=== PATIENT | female | born 1980 | race Caucasian/White ===

== ENCOUNTER → 2020-12-19 11:34 | Outpatient (CLI) | payer MEDICAID, SELFPAY ==
[2020-12-19 11:51] LABS: Basophils # 0.1 K/mm3 (0-0.2); Basophils % 0.7 % (0.1-2.0); Eosinophils # 0.3 K/mm3 (0.0-0.4); Hematocrit 38.4 % (37.0-47.0); Hemoglobin 12.4 g/dL (12.2-16.2); Lymphocytes # 3.3 K/mm3 (0.7-4.5); Lymphocytes % 25.9 % (10-50); Mean Corpuscular HGB Conc 32.3 g/dL (31.8-35.4); Mean Corpuscular Hemoglobin 26.2 pg (27.0-31.2); Mean Platelet Volume 8.2 fl (7.4-10.4); Monocytes # 0.5 K/mm3 (0.1-1.0); Monocytes % 3.7 % (1.7-9.3); Neutrophils # 8.7 K/mm3 (1.8-7.8); Neutrophils % 67.6 % (37.0-80.0); Platelet Count 255 K/mm3 (142-424); Red Blood Count 4.74 M/mm3 (4.20-5.40); Red Cell Distribution Width 15.3 % (11.5-17.5); White Blood Count 12.9 K/mm3 (4.8-10.8)
[2020-12-19 12:51] LABS: Erythrocyte Sedimentation Rate 103 mm/hr (0-20)
[2020-12-19 12:57] LABS: Chloride 105 mmol/L (98-107)
[2020-12-19 12:58] LABS: Potassium 4.5 mmoL/L (3.5-5.1); Sodium 141 mmol/L (136-145)
[2020-12-19 13:00] LABS: Blood Urea Nitrogen 5 mg/dl (7-17); Estimated Glomerular Filt Rate 110 ml/min (>60); GFR (African American) 133 ML/MIN (>60)
[2020-12-19 13:01] LABS: Alanine Aminotransferase 17 U/L (12-78); Albumin/Globulin Ratio 1.4 (1.1-1.8); Alkaline Phosphatase 75 U/L (38-126); Anion Gap 14.5 mEq/L (5-15); Aspartate Amino Transferase 28 U/L (14-36); Bilirubin,Total 0.2 mg/dl (0.2-1.3); Calcium 9.2 mg/dl (8.4-10.2); Carbon Dioxide 26 mmol/L (22.0-30.0); Cholesterol 148 mg/dl (140-200); Globulin 2.9 g/dL (1.3-3.2); Glucose 84 mg/dl (74-100); Total Protein,Serum 6.9 g/dl (6.3-8.2); Triglycerides 182 mg/dl (30-150); VLDL Cholesterol 36 mg/dL (0-40)
[2020-12-19 13:02] LABS: HDL Cholesterol 63 mg/dl (40-60)
[2020-12-19 13:21] LABS: Chol/HDL Ratio 2.3 (1-3.5); T4 (Thyroxine) 11.8 ug/dl (5.53-11.0)
[2020-12-19 13:32] LABS: Thyroid Stimulating Hormone 2.02 uIU/mL (0.465-4.68)
[2020-12-21 11:37] LABS: Peripheral Smear Review Scanned Result
[2020-12-23 21:13] LABS: 1,25 Dihydroxy Vitamin D 52 pg/mL (.); 1,25-Dihydroxy, Vitamin D-2 33 pg/mL (.); 1,25-Dihydroxy, Vitamin D-3 19 pg/mL (.)
== END ==
PROVIDERS: Visit Provider Nurse Practitioner Family
DX: F41.9 Anxiety disorder, unspecified (principal); D72.829 Elevated white blood cell count, unspecified; F32.9 Major depressive disorder, single episode, unspecified; M43.06 Spondylolysis, lumbar region; M46.96 Unspecified inflammatory spondylopathy, lumbar region; E66.9 Obesity, unspecified; Z68.42 Body mass index [BMI] 45.0-49.9, adult
CPT/HCPCS: 36415; 80053; 80061; 82652; 84436; 84443; 85025; 85651

== ENCOUNTER → 2021-01-02 11:17 | Outpatient (CLI) | payer MEDICAID, SELFPAY ==
--- NOTE | 2021-01-02 11:23 | XR_ITS ---
PROCEDURE INFORMATION: Exam: XR Left Hip Exam date and time: 01/02/2021 11:23 AM Age: 40 years old Clinical indication: Left hip; Patient HX: Bilateral hip pain with no trauma TECHNIQUE: Imaging protocol: XR Left hip. Views: 2 or 3 views hip with pelvis when performed. COMPARISON: No relevant prior studies available. FINDINGS: Bones/joints: There is no evidence of acute fracture. There is no evidence of joint malalignment or dislocation. Soft tissues: There are no soft tissue masses or fluid collections. IMPRESSION: 1. No evidence of acute fracture. 2. No evidence of acute dislocation.
--- NOTE | 2021-01-02 11:23 | XR_ITS ---
PROCEDURE INFORMATION: Exam: XR Lumbosacral Spine Exam date and time: 01/02/2021 11:23 AM Age: 40 years old Clinical indication: Low back pain TECHNIQUE: Imaging protocol: XR of the lumbosacral spine. Views: 4 or 5 views. COMPARISON: No relevant prior studies available. FINDINGS: Bones/joints: The lumbar spine demonstrates mild degenerative changes at multiple levels. The facet joints demonstrate mild degenerative hypertrophy and sclerosis. There is no evidence of acute fracture. Soft tissues: Unremarkable. IMPRESSION: 1. The lumbar spine demonstrates mild degenerative changes at multiple levels. 2. No evidence of acute fracture.
--- NOTE | 2021-01-02 11:23 | XR_ITS ---
PROCEDURE: XR CHEST 2V CLINICAL HISTORY: leukocytosis COMPARISON: No exams were available for comparison FINDINGS: The cardiomediastinal silhouette and pulmonary vascularity are within normal limits. The lungs are clear without infiltrates, suspicious nodules, or pleural effusions. No acute bony abnormalities. IMPRESSION: No acute findings. Dictated by: Maame Krishna 01/03/2021 14:48 Maame Krishna in [facility] 01/03/2021 14:48
--- NOTE | 2021-01-02 11:25 | XR_ITS ---
PROCEDURE INFORMATION: Exam: XR Right Hip Exam date and time: 01/02/2021 11:25 AM Age: 40 years old Clinical indication: Patient HX: Bilateral hip pain with no trauma TECHNIQUE: Imaging protocol: XR Right hip. Views: 2 or 3 views hip with pelvis when performed. COMPARISON: No relevant prior studies available. FINDINGS: Bones/joints: There is no evidence of acute fracture. There is no evidence of joint malalignment or dislocation. There are mild degenerative changes in the right hip joint. Soft tissues: There are no soft tissue masses or fluid collections. IMPRESSION: 1. No evidence of acute fracture. 2. No evidence of acute dislocation. 3. There are mild degenerative changes in the right hip joint.
== END ==
PROVIDERS: PCP Emergency Medicine; Visit Provider Nurse Practitioner Family
DX: M54.5 Low back pain (principal); G89.29 Other chronic pain; M54.9 Dorsalgia, unspecified; D72.829 Elevated white blood cell count, unspecified
CPT/HCPCS: 71046; 72110; 73502

== ENCOUNTER → 2021-01-23 16:05 | Outpatient (CLI) | payer MEDICAID, SELFPAY ==
[2021-01-23 16:58] LABS: Phencyclidine Screen,Urine Negative ng/ml (<25)
[2021-01-23 17:07] LABS: Amphetamine/Metha Screen,Urine Negative ng/ml (<1000)
[2021-01-23 17:08] LABS: Barbiturates Screen,Urine Negative ng/ml (<200)
[2021-01-23 17:09] LABS: Benzodiazepines Screen,Urine Negative ng/ml (<200); Cannabinoid Screen,Urine Negative ng/ml (<50)
[2021-01-23 17:11] LABS: Cocaine Screen,Urine Negative ng/ml (<300)
[2021-01-23 17:12] LABS: Methadone Screen,Urine Negative ng/ml (<300); Opiate Screen,Urine Negative ng/ml (<300)
== END ==
PROVIDERS: Visit Provider Emergency Medicine
DX: Z79.899 Other long term (current) drug therapy (principal)
CPT/HCPCS: 80305

== ENCOUNTER → 2021-02-07 13:29 | Outpatient (CLI) | payer MEDICAID, SELFPAY ==
[2021-02-07 14:24] LABS: Basophils # 0.1 K/mm3 (0-0.2); Basophils % 0.7 % (0.1-2.0); Eosinophils # 0.2 K/mm3 (0.0-0.4); Eosinophils % 1.6 % (0.1-12.0); Hematocrit 40.3 % (37.0-47.0); Hemoglobin 12.5 g/dL (12.2-16.2); Lymphocytes # 3.7 K/mm3 (0.7-4.5); Lymphocytes % 27.9 % (10-50); Mean Corpuscular HGB Conc 30.9 g/dL (31.8-35.4); Mean Corpuscular Volume 87.2 fl (81-99); Mean Platelet Volume 9.6 fl (7.4-10.4); Monocytes # 0.6 K/mm3 (0.1-1.0); Monocytes % 4.2 % (1.7-9.3); Neutrophils # 8.6 K/mm3 (1.8-7.8); Neutrophils % 65.6 % (37.0-80.0); Platelet Count 321 K/mm3 (142-424); Red Blood Count 4.62 M/mm3 (4.20-5.40); Red Cell Distribution Width 15.4 % (11.5-17.5); White Blood Count 13.1 K/mm3 (4.8-10.8)
== END ==
PROVIDERS: Visit Provider Internal Medicine Medical Oncology
DX: D64.9 Anemia, unspecified (principal)
CPT/HCPCS: 36415; 85025

== ENCOUNTER → 2021-04-17 16:27 | Outpatient (CLI) | payer MEDICAID, SELFPAY ==
--- NOTE | 2021-04-17 16:27 | MR_ITS ---
PROCEDURE: MR LUMBAR SPINE WO CON CLINICAL INDICATION: back pain Low back pain with bilateral leg pain COMPARISON: CR XR LUMBAR SPINE MIN 4V from 01/02/2021 TECHNIQUE: Standard multiplanar multiecho sequences are performed without contrast. 3-D MIP and myelographic images are also rendered and reviewed FINDINGS: Normal alignment. The spinal cord ends at the L1 level. T11-T12: Mild degenerative disc disease with minimal bulging disc. T12-L1: Unremarkable. L1-L2: Mild facet hypertrophic change. L2-L3: Degenerative disc disease with mild bulging of the disc slightly eccentric toward the left along with facet and ligamentum hypertrophic change with mild left lateral recess narrowing and mild bilateral foraminal narrowing. Small transverse area of decreased T2 signal is present along the posterior aspect of the L3 vertebral body superiorly adjacent to the disc and may represent a small osteophyte versus partial volume averaging artifact. L3-L4: Mild concentric bulging disc with small broad-based central disc protrusion along facet and ligamentum hypertrophic change with resultant bilateral lateral recess narrowing. L4-5: Concentric bulging disc with small broad-based central disc protrusion along with facet and ligamentum hypertrophic change with mild bilateral lateral recess and mild right and moderate left foraminal narrowing. There is borderline canal stenosis at this level. L5-S1: Facet hypertrophy causing bilateral lateral recess narrowing which is slightly greater on the left. No extruded herniated disc. No fracture or dislocation. No bony destructive process. IMPRESSION: Multilevel lumbar spondylosis with bulging discs and small broad-based disc protrusions along with facet and ligamentum hypertrophic change resulting in lateral recess and foraminal narrowing. Please see above for detailed description at each level. No extruded herniated disc. Dictated by: Say Weinstein MD 04/18/2021 07:21 Say Weinstein MD in [facility] 04/18/2021 07:21
== END ==
PROVIDERS: PCP Emergency Medicine; Visit Provider Emergency Medicine
DX: M43.06 Spondylolysis, lumbar region (principal)
CPT/HCPCS: 72148; 76376

== ENCOUNTER → 2021-05-27 11:14 | Outpatient (POV) | payer MEDICAID, SELFPAY ==
[2021-05-27 11:37] VITALS: BP 116/71; PULSE 97; RESP 18; O2SAT 96; BMI 43.7
--- NOTE | 2021-05-27 11:55 | [facility].PMCON ---
Assessment and Plan (1) Facet arthropathy Status: Acute Category: Medical Code(s): M47.819 - Spondylosis without myelopathy or radiculopathy, site unspecified (2) Bulging disc Status: Acute Category: Medical (3) Chronic back pain Status: Chronic Qualifiers: Back pain location: low back pain Back pain laterality: midline Sciatica presence: without sciatica Category: Medical Code(s): M54.9 - Dorsalgia, unspecified; G89.29 - Other chronic pain (4) Lumbar spondylitis Status: Chronic Category: Medical Code(s): M46.96 - Unspecified inflammatory spondylopathy, lumbar region - Assessment and plan all Dx Assessment and Plan for all problems:: Ordering Physician: Edson Sim MD Date of Service: 04/17/21 Procedure(s): MR lumbar spine wo con Accession Number(s): [id number] cc: Say Weinstein MD; Edson Sim MD~ PROCEDURE: MR LUMBAR SPINE WO CON CLINICAL INDICATION: back pain Low back pain with bilateral leg pain COMPARISON: CR XR LUMBAR SPINE MIN 4V from 01/02/2021 TECHNIQUE: Standard multiplanar multiecho sequences are performed without contrast. 3-D MIP and myelographic images are also rendered and reviewed FINDINGS: Normal alignment. The spinal cord ends at the L1 level. T11-T12: Mild degenerative disc disease with minimal bulging disc. T12-L1: Unremarkable. L1-L2: Mild facet hypertrophic change. L2-L3: Degenerative disc disease with mild bulging of the disc slightly eccentric toward the left along with facet and ligamentum hypertrophic change with mild left lateral recess narrowing and mild bilateral foraminal narrowing. Small transverse area of decreased T2 signal is present along the posterior aspect of the L3 vertebral body superiorly adjacent to the disc and may represent a small osteophyte versus partial volume averaging artifact. L3-L4: Mild concentric bulging disc with small broad-based central disc protrusion along facet and ligamentum hypertrophic change with resultant bilateral lateral recess narrowing. L4-5: Concentric bulging disc with small broad-based central disc protrusion along with facet and ligamentum hypertrophic change with mild bilateral lateral recess and mild right and moderate left foraminal narrowing. There is borderline canal stenosis at this level. L5-S1: Facet hypertrophy causing bilateral lateral recess narrowing which is slightly greater on the left. No extruded herniated disc. No fracture or dislocation. No bony destructive process. IMPRESSION: Multilevel lumbar spondylosis with bulging discs and small broad-based disc protrusions along with facet and ligamentum hypertrophic change resulting in lateral recess and foraminal narrowing. Please see above for detailed description at each level. No extruded herniated disc. Dictated by: Say Weinstein MD 04/18/2021 07:21 Say Weinstein MD in [facility] 04/18/2021 07:21 Patient has tried and failed conservative therapies such as oral medication, physical therapy, home exercise program 6 weeks. Patient has positive Hendricks's test. Neurosurgery and Microstrategy Developer say that she is not a surgical candidate. Patient says that a veterans services specialist told her that epidural injections would make her back worse so she is not interested in getting injections today. I have discussed with the patient that she is a good candidate for a spinal cord stimulator. We send the patient for a psychiatric evaluation then we will follow up with this patient after the eval. Patient says that she will have to think about going with a spinal cord stimulator since she is not fond of surgeries. I have provided the patient with information regarding the spinal cord stimulator. Risks and benefits of the procedure have been explained to the patient. We will not refill the patient's oral pain medications at this clinic. Patient has been instructed to contact the clinic with any concerns before the next appointment.
== END ==
PROVIDERS: Visit Provider Clinical Nurse Specialist Family Health
DX: M47.819 Spondylosis without myelopathy or radiculopathy, site unspecified (principal); G89.29 Other chronic pain; M46.96 Unspecified inflammatory spondylopathy, lumbar region
CPT/HCPCS: 99202; G0463

== ENCOUNTER → 2021-05-27 17:51 | Outpatient (CLI) | payer MEDICAID, SELFPAY ==
[2021-05-27 20:54] LABS: Amphetamine/Metha Screen,Urine Negative ng/ml (<1000)
[2021-05-27 20:55] LABS: Barbiturates Screen,Urine Negative ng/ml (<200); Benzodiazepines Screen,Urine Negative ng/ml (<200)
[2021-05-27 20:56] LABS: Cannabinoid Screen,Urine Negative ng/ml (<50)
[2021-05-27 20:57] LABS: Cocaine Screen,Urine Negative ng/ml (<300); Methadone Screen,Urine Negative ng/ml (<300)
[2021-05-27 20:58] LABS: Opiate Screen,Urine Negative ng/ml (<300); Phencyclidine Screen,Urine Negative ng/ml (<25)
== END ==
PROVIDERS: Visit Provider Emergency Medicine
DX: Z79.899 Other long term (current) drug therapy (principal)
CPT/HCPCS: 80305

== ENCOUNTER → 2021-08-13 20:33 | Outpatient (CLI) | payer MEDICAID, SELFPAY | PROVIDERS: PCP Emergency Medicine; Visit Provider Emergency Medicine | DX: G47.33 Obstructive sleep apnea (adult) (pediatric) (principal); R09.02 Hypoxemia; R40.0 Somnolence; R06.83 Snoring; E66.9 Obesity, unspecified; Z68.41 Body mass index [BMI] 40.0-44.9, adult | CPT/HCPCS: 95810 ==

== ENCOUNTER → 2021-08-16 13:43 | Outpatient (CLI) | payer MEDICAID, SELFPAY ==
[2021-08-16 18:04] LABS: Amphetamine/Metha Screen,Urine Negative ng/ml (<1000); Barbiturates Screen,Urine Negative ng/ml (<200)
[2021-08-16 18:05] LABS: Benzodiazepines Screen,Urine Negative ng/ml (<200)
[2021-08-16 18:06] LABS: Cannabinoid Screen,Urine Negative ng/ml (<50); Cocaine Screen,Urine Negative ng/ml (<300)
[2021-08-16 18:07] LABS: Methadone Screen,Urine Negative ng/ml (<300)
[2021-08-16 18:08] LABS: Opiate Screen,Urine Negative ng/ml (<300)
[2021-08-16 18:09] LABS: Phencyclidine Screen,Urine Negative ng/ml (<25)
== END ==
PROVIDERS: Visit Provider Emergency Medicine
DX: Z79.899 Other long term (current) drug therapy (principal)
CPT/HCPCS: 80305